=== PATIENT | male | born 1985 | race African-American/Black ===

== ENCOUNTER 2021-03-15 03:19 | Emergency (ER) | payer OTHER, SELFPAY ==
--- NOTE | ~2021-03-15 | XR_ITS ---
EXAMINATION: XR CHEST CLINICAL INFORMATION: Cough COMPARISON: None TECHNIQUE: Frontal view of the chest was obtained. FINDINGS: The lungs are well expanded. There is no focal consolidation, edema, or effusion. No pneumothorax. The cardiomediastinal silhouette is within normal limits. No acute osseous abnormality. XR/XR chest 1V IMPRESSION: Clear lungs.
[2021-03-15 03:37] VITALS: BP 136/84; PULSE 84; RESP 20; TEMP 37; O2SAT 100; BMI 26.4
[2021-03-15 04:05] LABS: COVID-19 Test Negative (Negative)
--- NOTE | 2021-03-15 05:00 | PC.NURSE ---
Dr Coon at bedside for eval at this time
--- NOTE | 2021-03-15 05:11 | ED.URI ---
HPI - URI/Sore Throat General Chief Complaint: Upper Respiratory Symptoms Stated Complaint: bad cough, chest pain (acute bronchitis dx) Time Seen by Provider: 03/15/21 04:58 Source: patient Mode of arrival: ambulatory Limitations: no limitations History of Present Illness HPI Narrative: 35-year-old male who presents emergency department for evaluation persistent cough. The patient states that he was traveling in [place] and came back a week ago. He states that since then he has had a cough which is been very persistent. He states the cough is nonproductive. He complains of chest pain with coughing. He has mild shortness of breath and dyspnea on exertion. He denied fever, chills. He was seen yesterday at an urgent care clinic and started on Tessalon Perles and an albuterol inhaler with no improvement of his symptoms. Related Data Previous Rx's Medication Instructions Recorded amoxicillin 500 mg capsule 500 mg PO TID 10 Days #30 cap 03/15/21 azithromycin 250 mg tablet See Rx Instructions .ROUTE 03/15/21 (Zithromax Z-Aamir) .COMPLEX #6 tab Allergies Allergy/AdvReac Type Severity Reaction Status Date / Time No Known Allergies Allergy Verified 03/15/21 03:40 Review of Systems Review of Systems: Yes all other systems are reviewed and are negative Neurologic: Reports Abnormal speech present [facility] Past Medical History [facility] Narrative: Past will history: None. Past surgical history: None. Social history: He denies tobacco use, he states that he rarely drinks alcohol, he denies drug use. Medical History (Updated 03/15/21 @ 05:19 by Adrian Coon MD) No known health problems Social History Social History Advance Directives: No Physical Exam Vital Signs: Vital Signs: Last Vital Signs Temp 98.6 F 03/15/21 03:37 Pulse 84 03/15/21 03:37 Resp 20 03/15/21 03:37 BP 136/84 03/15/21 03:37 Pulse Ox 100 03/15/21 03:37 BMI result Body Mass Index 26.4 Const: General: cooperative, no acute distress, well developed, alert and awake Orientation/consciousness: oriented to person HENMT: Head: Yes normal to inspection, Yes normocephalic and Yes atraumatic Ears: hearing grossly normal bilaterally General nose exam: Normal external nose present Face and sinus: Yes normal facial exam Mouth: Normal oral and palatal mucosa present, lip normal, tongue normal, oropharynx normal and moist mucous membranes Throat: Yes posterior oropharynx normal, Yes tonsils normal and Yes uvula midline Eyes: General: appearance normal, both eyes and all related structures Eyelids: Yes eyelids normal Conjunctivae: conjunctivae normal Sclerae: sclerae normal Corneas: corneas normal Pupils: Equal, round and reactive pupils present Neck: Neck: Yes normal visual inspection, Yes no lymphadenopathy, Yes trachea midline and Yes supple Thyroid: Thyroid normal Lymphatic: no lymphadenopathy noted Chest: Chest palpation & inspection: normal inspection of the chest and normal palpation of entire chest wall Resp: Effort & Inspection: normal respiratory effort and able to speak in complete sentences Auscultation: clear to auscultation bilaterally Cardio: Rate: regular rate Rhythm: regular rhythm Heart sounds: S1 normal heart sound present, S2 normal heart sound present and Murmur heart sound present systolic II/ and at the axilla GI: Inspection: Yes normal to inspection Palpation (GI): Soft to palpation, nontender and No hepatosplenomegaly present Auscultation: normal bowel sounds : General: Yes no CVA tenderness Back/Spine/Pelvis: Back: no CVA tenderness Thoracic/Lumbar Spine: thoracic and lumbar spine normal to inspection Skin: General skin exam: no rashes or lesions noted, no erythema and no jaundice Lesions: no lesions Rashes: no rashes Trauma: no lacerations or abrasions Wounds: no wounds Neuro: General: oriented to person, moves all extremities and no focal motor deficits Cranial nerves: Yes Equal, round and reactive pupils present Cognition (Neuro): normal cognition Speech: Abnormal speech present Motor exam (neuro): Motor abnormalities not present Extrem: General: Yes normal to inspection, Yes no pedal edema and Yes no calf tenderness Right upper extremity: normal to inspection Left upper extremity: normal to inspection Right lower extremity: normal to inspection Left lower extremity: normal to inspection Psych: Appearance: grossly normal Mental Status: mental status grossly normal Speech and movement: Normal speech and movement present Affect: normal affect Attitude: cooperative Thought process: Normal thought process present Insight: Good insight present (Psych) Course Course Course Narrative: 35-year-old male who presents emergency department for evaluation of persistent cough x1 week, mild shortness of breath and mild dyspnea on exertion, pleuritic chest pain with coughing. Vital signs were normal. Patient's lung exam was unremarkable. The patient it is hard exam did reveal a 2/6 systolic murmur. Patient's COVID-19 test was negative. Chest x-ray revealed no pneumonia or infiltrates. The patient's presentation is consistent with bronchitis. Given his recent travel and concerned that he may have an atypical bacterial infection therefore he will be treated with Zithromax Z-Aamir and amoxicillin 1000 mg twice a day for 5 days. Was given printed and verbal instructions and discharged home. MDM - URI/Sore Throat Lab Data Labs: Lab Results 03/15/21 Range/Units 03:30 COVID-19 ([facility]) Negative (Negative) COVID-19 Clin Com See Note Discharge Plan Discharge Clinical Impression: Bronchitis, Heart murmur Patient Disposition: Home, Self-Care Instructions: Acute Bronchitis (ED), Heart Murmur (ED) Additional Instructions: Continue using the albuterol inhaler 2 puffs 4 times a day for 1 week Use the Tessalon Perles as prescribed. Take Zithromax Z-Aamir Take amoxicillin 500 mg pills, 2 pills once a day for 5 days. Follow-up with your doctor in 2 days. Please return to the emergency department if your symptoms get worse or if you develop any symptoms that are concerning to you. You do have a systolic heart murmur, this should be followed up by your primary care doctor or [facility]. I wrote down the name of our [facility] and you can call them to see if they can see you as an outpatient Prescriptions: New amoxicillin 500 mg capsule 500 mg PO TID 10 Days Qty: 30 RF: 0 azithromycin [Zithromax Z-Aamir] 250 mg tablet See Rx Instructions .ROUTE .COMPLEX Qty: 6 RF: 0 Referrals: Vasquez Melton MD [Physician] - 2 weeks
[2021-03-15 05:18] VITALS: BP 130/76; PULSE 74; RESP 18; O2SAT 100
[2021-03-15] MEDS: Amoxicillin 500 MG CAPSULE 1000 MG PO (05:19)
[2021-03-15] MEDS: Azithromycin 500 MG TABLET PO (05:19)
== END 2021-03-15 05:45 | disposition home or self-care (01) ==
PROVIDERS: Emergency Provider Emergency Medicine Emergency Medical Services
DX: J20.9 Acute bronchitis, unspecified (principal); R01.1 Cardiac murmur, unspecified; Z20.822 Contact with and (suspected) exposure to COVID-19
CPT/HCPCS: 36415; 71045; 87635; 99283; 99284